=== PATIENT | male | born 1985 | race Hispanic/Latino ===

== ENCOUNTER → 2017-12-07 | Outpatient (REF) | payer OTHER ==
[2017-12-07 10:46] LABS: SEMEN APPEARANCE OPAQUE (OPAQUE); SEMEN VISCOSITY VISCOUS (LIQUID); SEMEN VOLUME 0.3 ml (4.0-5.0)
== END ==
LOC: M LAB REF 09:56
DX: N46.9 Male infertility, unspecified (principal)

== ENCOUNTER 2020-02-04 23:48 | Emergency (ER) | payer OTHER ==
[~2020-02-04] VITALS: Ht 190.5 cm; Wt 91.1 kg
[2020-02-04 23:48] VITALS: BP 147/87
== END 2020-02-05 01:23 | disposition home or self-care (01) ==
LOC: M ED 23:48
DX: Z11.59 Encounter for screening for other viral diseases (principal)
CPT/HCPCS: 99281; U0002

== ENCOUNTER → 2020-04-13 | Outpatient (CLI) | payer SELFPAY | LOC: M LABSMTC 11:26 | PROVIDERS: ATTEND Pediatrics | DX: Z20.828 Contact with and (suspected) exposure to other viral communicable diseases (principal) ==